=== PATIENT | male | born 1990 | race Two or more races ===

== ENCOUNTER 2024-10-06 02:29 | Inpatient (IN) | payer MEDICARE, SELFPAY ==
[2024-10-06] VITALS (33 sets, daily range): BP systolic 94–167; BP diastolic 59–108; PULSE 82–116; RESP 9–23; TEMP 36.8; O2SAT 93–100; BMI 47.3; BMI 49.6
--- NOTE | 2024-10-06 02:44 | XRR_ITS ---
PROCEDURE INFORMATION: Exam: XR Chest Exam date and time: 10/06/2024 3:18 AM Age: 34 years old Clinical indication: Screening exam; Other screening; Additional info: Overdose TECHNIQUE: Imaging protocol: Radiologic exam of the chest. Views: 1 view. COMPARISON: No relevant prior studies available. FINDINGS: Lungs: No CHF/pulmonary edema. Visible lungs appear essentially clear. Pleural spaces: No visible pneumothorax. No definite pleural fluid. Heart/Mediastinum: Heart size is within normal limits. Bones/joints: No significant acute finding. XR/XR chest 1V portable [id number] IMPRESSION: 1. Essentially unremarkable single view chest. 2. Other details discussed above.
--- NOTE | 2024-10-06 03:05 | ED.C_ITS ---
HPI - Psych 2 General: Chief Complaint: Psychiatric Symptoms Stated Complaint: OD pills Time Seen by Provider: 10/06/24 02:32 History of Present Illness: Patient presents to the ER with complaints of overdose. Patient took one and half bottles for approximately 45 pills of duloxetine last night around 2019. This was a direct attempt to end his life because he is tired of life. Patient does want to be placed in the psychiatric unit as an inpatient. He does have some nausea vomiting and fatigue since then but no other complaints. Related Data Allergies Allergy/AdvReac Type Severity Reaction Status Date / Time No Known Allergies Allergy Verified 10/06/24 02:35 Review of Systems 2 General: Reports: 10 or more systems reviewed and unremarkable except in HPI and below Physical Exam 2 Const: COMMON NORMALS: no acute distress, average body habitus, patient oriented x3, no limitations, healthy appearing, alert and well nourished HENMT: COMMON NORMALS: normocephalic, atraumatic, hearing grossly normal bilaterally, external ears normal, Normal external nose present and moist oral mucous membranes HEAD & SCALP: normocephalic and atraumatic NOSE: Normal external nose present EXTERNAL EAR: Yes external ears normal Eye: COMMON NORMALS: Equal, round and reactive pupils present, EOMs intact bilaterally, conjunctivae normal and no scleral icterus CONJUNCTIVA: Yes conjunctivae normal PUPIL: Yes Equal, round and reactive pupils present Neck/C-Spine: COMMON NORMALS: full ROM, no lymphadenopathy, supple, no meningeal signs, no JVD and Thyroid normal THYROID: Thyroid normal Chest: COMMONS NORMALS: normal inspection of the chest and normal palpation of entire chest wall Resp: COMMON NORMALS: normal respiratory effort, No retractions, No use of accessory muscles and clear to auscultation bilaterally AUSCULTATION: clear to auscultation bilaterally Cardio: COMMON NORMALS: no JVD, regular rate, regular rhythm, S1 normal heart sound present, S2 normal heart sound present, No gallops present (Cardio), No clicks present (Cardio), No murmurs present (Cardio) and No rub (Cardio) R ATE: regular rate RHYTHM: regular rhythm HEART SOUNDS: S1 normal heart sound present and S2 normal heart sound present GI: COMMON NORMALS: Normal to inspection, nondistended, normoactive bowel sounds present, Soft to palpation, non-tender, No hepatosplenomegaly present and no masses PALPATION: Yes Soft to palpation and Yes No hepatosplenomegaly present Neuro: COMMON NORMALS: patient oriented x3 SENSORIUM/ORIENTATION: Yes alert MENINGEAL SIGNS: Yes no meningeal signs Course 2 Vital Signs: Vital signs: Vital Signs Temperature 98.3 F 10/06/24 02:32 Pulse Rate 105 H 10/06/24 03:43 Respiratory Rate 13 10/06/24 03:43 Blood Pressure 125/90 10/06/24 03:43 Pulse Oximetry 97 10/06/24 03:43 Oxygen Delivery Me thod Room Air 10/06/24 03:43 MDM - Psych Medical Decision Making Lab work was obtained, in standard psychiatric fashion once cleared medically Dr. Becerra was consulted who agreed to place patient in ICU obs until stable and then transferred to MPU. Will place patient on 96-hour hold since this was a direct suicide attempt Medical Records I reviewed the patient's medical records. Lab Data I reviewed the patient's lab results. 10/06/24 03:14 10/06/24 03:14 Laboratory Results WBC 10.90 10^3/uL (3.29-11.43) 10/06/24 03:14 RBC 5.28 10^6/uL (3.85-5.65) 10/06/24 03:14 Hgb 14.60 g/dL (11.27-16.99) 10/06/24 03:14 Hct 44.0 % (37-53) 10/06/24 03:14 MCV 83.3 fl (82-101) 10/06/24 03:14 MCH 27.7 pg (27-33) 10/06/24 03:14 MCHC 33.2 g/dL (30-55) 10/06/24 03:14 RDW 11.8 % (12.1-15.1) L 10/06/24 03:14 Plt Count 351 10^3/cmm (157-399) 10/06/24 03:14 MPV 9.6 fL (7.4-10.4) 10/06/24 03:14 Neut % (Auto) 74.1 % 10/06/24 03:14 Lymph % (Auto) 17.8 % 10/06/24 03:14 [place] % (Auto) 4.7 % 10/06/24 03:14 Eos % (Auto) 1.7 % 10/06/24 03:14 Baso % (Auto) 1.1 % 10/06/24 03:14 Neut # (Auto) 8.08 10^3/uL (1.8-7.7) H 10/06/24 03:14 Lymph # (Auto) 1.9 10^3/uL (0.8-4.8) 10/06/24 03:14 [place] # (Auto) 0.5 10^3/uL (0.2-0.9) 10/06/24 03:14 Eos # (Auto) 0.2 10^3/uL (0.0-0.8) 10/06/24 03:14 Baso # (Auto) 0.1 10^3/uL (0.0-0.1) 10/06/24 03:14 Nucleated RBC % (auto) 0 % 10/06/24 03:14 Nucleated RBCs # 0.0 /100WBC 10/06/24 03:14 Sodium 140 mmol/L (136-145) 10/06/24 03:14 Potassium 4.3 mmol/L (3.5-5.1) 10/06/24 03:14 Chloride 101 mmol/L (98-107) 10/06/24 03:14 Carbon Dioxide 26 mmol/L (22-29) 10/06/24 03:14 Anion Gap 17.3 (5-19) 10/06/24 03:14 BUN 13 mg/dL (6-20) 10/06/24 03:14 Creatinine 1.0 mg/dL (0.7-1.2) 10/06/24 03:14 GFR Calculation 85.5 mL/min (90-130) L 10/06/24 03:14 Glucose 127 mg/dL (65-115) H 10/06/24 03:14 Calculated Osmolality 292 mOsm/kg (285-295) 10/06/24 03:14 Calcium 9.5 mg/dL (8.5-10.5) 10/06/24 03:14 Magnesium 2.1 mg/dL (1.7-2.3) 10/06/24 03:14 Total Bilirubin 0.3 mg/dL (0.15-1.2) 10/06/24 03:14 AST 39 U/L (0-40) 10/06/24 03:14 ALT 61 U/L (0-41) H 10/06/24 03:14 Alkaline Phosphatase 105 U/L (40-130) 10/06/24 03:14 Total Protein 7.9 g/dL (6.6-8.7) 10/06/24 03:14 Albumin 4.4 g/dL (3.5-5.2) 10/06/24 03:14 Globulin 3.5 g/dL (1.3-4.6) 10/06/24 03:14 Urine Color Yellow (Yellow) 10/06/24 03:47 Urine Appearance Clear (CLEAR) 10/06/24 03:47 Urine pH 6.5 (5-7) 10/06/24 03:47 Ur Specific Drake 1.022 (1.005-1.030) 10/06/24 03:47 Urine Protein Negative (Negative) 10/06/24 03:47 Urine Glucose (UA) Negative (Normal) 10/06/24 03:47 Urine Ketones Trace (Negative) 10/06/24 03:47 Urine Blood Negative (Negative) 10/06/24 03:47 Urine Nitrate Negative (Negative) 10/06/24 03:47 Urine Bilirubin Negative (Negative) 10/06/24 03:47 Urine Urobilinogen 1.0 mg/dL (Negative) 10/06/24 03:47 Ur Leukocyte Esterase Negative (Negative) 10/06/24 03:47 Urine RBC 0-2 /hpf (0-2) 10/06/24 03:47 Urine WBC 0-5 /hpf (0-5) 10/06/24 03:47 Ur Squamous Epith Cells 0-5 /hpf (0-5) 10/06/24 03:47 Amorphous Sediment Not Reportable 10/06/24 03:47 Urine Bacteria None seen /hpf (NONE) 10/06/24 03:47 Hyaline Casts 0-4 /lpf H 10/06/24 03:47 Salicylates < 0.3 mg/dL (3-10) L 10/06/24 03:14 Urine Opiates Screen Negative ng/mL (Negative) 10/06/24 03:47 Acetaminophen < 5.0 ug/mL (10-30) L 10/06/24 03:14 Ur Barbiturates Screen Negative ng/mL (Negative) 10/06/24 03:47 Ur Phencyclidine Scrn Negative ng/mL (Negative) 10/06/24 03:47 Ur Amphetamines Screen Negative ng/mL (Negative) 10/06/24 03:47 U Benzodiazepines Scrn Negative ng/mL (Negative) 10/06/24 03:47 Urine Cocaine Screen Negative ng/mL (Negative) 10/06/24 03:47 U Marijuana (THC) Screen Negative ng/mL (Negative) 10/06/24 03:47 Ethyl Alcohol < 10 mg/dL (0-10) 10/06/24 03:14 All radiology interpretation(s) finalized by discharge Discharge Plan Discharge Patient Disposition: Placed in Observation Clinical Impression: Overdose of antidepressant Qualifiers: Encounter type: initial encounter Injury intent: intentional self-harm Q ualified Code(s): T43.202A - Poisoning by unspecified antidepressants, intentional self-harm, initial encounter Coding Level of Care Code ED Geotechnician for Jenn Bacon
[2024-10-06 03:23] LABS: Basophils # 0.1 10^3/uL (0.0-0.1); Basophils % 1.1 %; Eosinophils # 0.2 10^3/uL (0.0-0.8); Eosinophils % 1.7 %; Lymphocytes # 1.9 10^3/uL (0.8-4.8); Lymphocytes % 17.8 %; Mean Corpuscular HGB Conc 33.2 g/dL (30-55); Mean Corpuscular Hemoglobin 27.7 pg (27-33); Mean Corpuscular Volume 83.3 fl (82-101); Mean Platelet Volume 9.6 fL (7.4-10.4); Monocytes # 0.5 10^3/uL (0.2-0.9); Monocytes % 4.7 %; Neutrophils # 8.08 10^3/uL (1.8-7.7); Neutrophils % 74.1 %; Nucleated Red Blood Cells % 0 %; Platelet Count 351 10^3/cmm (157-399); Red Blood Count 5.28 10^6/uL (3.85-5.65); Red Cell Distribution Width 11.8 % (12.1-15.1)
--- NOTE | 2024-10-06 03:24 | ECG_ITS ---
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: : 1990 Requested By: Noe Murcia Order Number: [id number] Reading MD: MARK GILL Measurements Intervals [place] Rate: 96 P: 32 [place]: 176 QRS: -21 QRSD: 104 T: 30 QT: 337 QTc: 427 Interpretive Statements SINUS RHYTHM BORDERLINE LEFT AXIS DEVIATION [QRS AXIS < -20] LOW QRS VOLTAGE IN PRECORDIAL LEADS [QRS DEFLECTION < 1.0 mV IN CHEST LEADS] INCOMPLETE RIGHT BUNDLE BRANCH BLOCK [90+ ms QRS DURATION, TERMINAL R IN V1/V2, 40+ ms S IN I/aVL/V4/V5/V6] No previous ECG available for comparison Electronically Signed On 10-06-2024 23:22:51 FIRST HELPER by MARK GILL [id number]
[2024-10-06 03:41] LABS: Acetaminophen < 5.0 ug/mL (10-30); Alanine Aminotransferase 61 U/L (0-41); Albumin Level 4.4 g/dL (3.5-5.2); Alcohol Level < 10 mg/dL (0-10); Alkaline Phosphatase 105 U/L (40-130); Anion Gap 17.3 (5-19); Aspartate Amino Transferase 39 U/L (0-40); Blood Urea Nitrogen 13 mg/dL (6-20); Calcium 9.5 mg/dL (8.5-10.5); Carbon Dioxide 26 mmol/L (22-29); Chloride 101 mmol/L (98-107); Creatinine Clr Calc Pharmacy 157.2274; Globulin 3.5 g/dL (1.3-4.6); Glomerular Filtration Rate 85.5 mL/min (90-130); Glucose 127 mg/dL (65-115); Magnesium 2.1 mg/dL (1.7-2.3); Osmolality Calculated 292 mOsm/kg (285-295); Potassium 4.3 mmol/L (3.5-5.1); Salicylate < 0.3 mg/dL (3-10); Sodium 140 mmol/L (136-145); Total Bilirubin 0.3 mg/dL (0.15-1.2); Total Protein 7.9 g/dL (6.6-8.7)
--- NOTE | 2024-10-06 03:44 | PC.NURSE ---
PT VERBALIZED THAT HE WAS HAVING SI SO HE TOOK 45 DULOXITINE AT 2030. NURSE CONTACTED POISON CONTROL. PT VS ARE STABLE AT THIS TIME AND PT IS ASYMPTOMATIC.
[2024-10-06 03:51] LABS: Bilirubin Urine Negative (Negative); Blood Urine Negative (Negative); Glucose Urine UA Negative (Normal); Ketones Urine Trace (Negative); Leukocyte Esterase Urine Negative (Negative); Nitrate Urine Negative (Negative); Protein Urine Negative (Negative); Specific Gravity, Urine 1.022 (1.005-1.030); Urine Appearance Clear (CLEAR); Urine Color Yellow (Yellow); pH Urine 6.5 (5-7)
[2024-10-06 03:56] LABS: Add Urine Microscopic? YES; Bacteria Urine None Seen /hpf; Hyaline Casts Urine 0-4 /lpf; RBC Urine 0-2 /hpf (0-2); Squamous Epithelial Cell Urine 0-5 /hpf (0-5); WBC Urine 0-5 /hpf (0-5)
[2024-10-06 03:58] LABS: Amphetamines Screen Urine Negative (Negative); Barbiturates Screen Urine Negative (Negative); Benzodiazepines Screen Urine Negative (Negative); Cocaine Screen Urine Negative (Negative); Opiate Screen Urine Negative (Negative); PCP Screen Urine Negative (Negative); THC Screen Urine Negative (Negative)
--- NOTE | 2024-10-06 04:14 | P.HP_ITS ---
Providers/Chief Complaint 2 Chief Complaint: OD pills History of Present Illness Tracey Valverde is a 34 year old male with asthma, depression, anxiety, obesity, and prior suicide attempt via overdose who presents to the emergency department with intentional drug overdose with intent for suicide. He reports he took about 45 duloxetine pills around 8:30 PM last night. He reports he did this in attempt to end his life. Endorses multiple life stressors currently. States this is his second attempt on his life. He endorses at least 6 prior psychiatric hospitalizations, mostly in [facility]. He reports his most recent hospitalization was about 5 to 6 months ago. He states he has not establish psychiatric care here in the area since moving here. Patient currently endorses nausea and upset stomach. He rates his abdominal discomfort about a 6 out of 10. Denies chest pain, palpitations, fevers, chills, or emesis. Review of Systems 2 Narrative: A complete review of systems was obtained and is negative except as stated in HPI. Medications/Allergies Allergies Allergy/AdvReac Type Severity Reaction Status Date / Time No Known Allergies Allergy Verified 10/06/24 02:35 PFSH Acute 2 PFSH: Medical History Morbid obesity Asthma Surgical History History of thumb surgery Family History Mother Depression Social History Smoking and tobacco/nicotine status: never used tobacco/nicotine Alcohol intake: never Substance/Drug Use: former Date of last use: Months ago Former substance use details: Marijuana Vitals/I&O/Wt Last Vital Signs Temp 98.3 F 10/06/24 02:32 Pulse 105 H 10/06/24 03:43 Resp 13 10/06/24 03:43 BP 125/90 10/06/24 03:43 Pulse Ox 97 10/06/24 03:43 O2 Del Method Room Air 10/06/24 03:43 10/05/24 10/05/24 10/06/24 14:59 22:59 06:59 Intake Total 0 / 0 Balance 0 / 0 Weight last 48 hrs Weight 154.04 kg Physical Exam 2 Narrative: General: Patient is awake and alert. Head: Normocephalic. Atraumatic. EOM intact. Neck: No JVD. Cardiovascular: RRR. No gallops. No murmurs. Lungs: Clear to auscultation, no use of accessory muscles, no crackles or wheezes. Skin: No jaundice. No rashes. Abdomen: Normal bowel sounds, abdomen soft and nontender. Genito Urinary: Genital exam not performed since complaints not related. Rectal: Rectal exam not performed since no symptoms indicated blood loss. Extremities: No cyanosis or clubbing. Musculoskeletal: No swollen or erythematous joints. Neurological: Moves all 4 extremities. No myoclonus. Psychiatric: Appropriate eye contact. Slightly flat affect. Data 10/06/24 03:14 10/06/24 03:14 A&P Assessment and plan (1) Overdose of antidepressant: Poison control contacted by ED, appreciate their mentations Continuous telemetry monitoring Monitor for EKG prolongation IV fluids ordered Qualifiers: Encounter type: initial encounter Injury intent: intentional self-harm Qualified Code(s): T43.A - Poisoning by unspecified antidepressants, intentional self-harm, initial encounter (2) Suicide attempt: ED provider reports 96-hour hold Suicide precautions Sitter Will need psychiatry consult in a.m. (3) Nausea: Likely related to drug intoxication Provide supportive care May consider antiemetic, will hold off for now given risk of compounding QTc prolongation (4) Asthma: Not in exacerbation Breathing treatment as needed (5) Morbid obesity: Would benefit from weight loss Plan DVT prophylaxis: Lovenox CODE STATUS: Full code Attestations 2 Medical Necessity Statement*: Patient presents with intentional drug overdose with expected hospitalization not to cross 2 midnights for IV fluids, telemetry, QTc monitoring, and psychiatric evaluation. Coding Level of Care Code Acute Code for Chg Fwd Diagnoses Overdose of antidepressant T43.202A Encounter type: initial encounter Injury intent: intentional self-harm Suicide attempt T14.91XA Nausea R11.0 Asthma J45.909 Morbid obesity E66.01
--- NOTE | 2024-10-06 04:34 | PC.NURSE ---
96 Hour Involuntary Hold Patient Rights have been reviewed with the patient and a copy of the same has been provided to him. Anesthesiology Physician Sabine was present at bedside during the time of presentation of Rights.
[2024-10-06] MEDS: calcium carbonate 500 mg Chew Tablet 1000 MG PO (05:33)
[2024-10-06] MEDS: enoxaparin 40 mg/0.4 mL Syringe SUBCUT (05:33)
[2024-10-06] MEDS: dextrose 5%-sod chloride 0.45% 1,000 ML 150 ML IV ×3 (05:42→19:55)
--- NOTE | 2024-10-06 06:15 | PC.NURSE ---
Nausea Patient complaining of nausea; Dr. Becerra contacted and order received for 4 mg zofran IVP once.
[2024-10-06] MEDS: ondansetron 2 mg/ML SDV 2 mL 4 MG IVP (06:22)
--- NOTE | 2024-10-06 09:24 | ECG_ITS ---
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1990 Requested By: Mazin Banegas Order Number: [id number] Reading MD: MARK GILL Measurements Intervals [place] Rate: 94 P: 33 [place]: 183 QRS: -20 QRSD: 117 T: 31 QT: 359 QTc: 450 Interpretive Statements SINUS RHYTHM LOW QRS VOLTAGE IN PRECORDIAL LEADS [QRS DEFLECTION < 1.0 mV IN CHEST LEADS] MODERATE INTRAVENTRICULAR CONDUCTION DELAY [110+ ms QRS DURATION] Compared to ECG 10/06/2024 03:24:01 Intraventricular conduction delay now present Incomplete right bundle-branch block no longer present Electronically Signed On 10-06-2024 23:32:40 DICE TABLE PERSON by MARK GILL [id number]
--- NOTE | 2024-10-06 14:08 | PC.NURSE ---
Poison control recommended repeat 12 lead at 1500 to monitor qrs
--- NOTE | 2024-10-06 15:34 | P.PN_ITS ---
Subjective 2 Subjective: Patient seen at his bedside this morning. He reports some dizziness. Nausea is improved. He has no other complaints. Vitals/I&O/Wt Last Vital Signs Temp 98.2 F 10/06/24 05:06 Pulse 87 10/06/24 12:00 Resp 21 H 10/06/24 12:00 BP 110/72 10/06/24 14:00 Pulse Ox 97 10/06/24 14:00 O2 Del Method Room Air 10/06/24 05:50 10/06/24 10/06/24 10/06/24 06:59 14:59 22:59 Intake Total 0 / 0 1200 / 1200 Balance 0 / 0 1200 / 1200 Weight last 48 hrs Weight 152.5 kg Weight 152.5 kg Weight 154.04 kg Physical Exam 2 Const: COMMON NORMALS: no acute distress, patient oriented x3 and alert HENMT: COMMON NORMALS: normocephalic, atraumatic, external ears normal, Normal external nose present, moist oral mucous membranes and oropharynx normal HEAD & SCALP: normocephalic and atraumatic NOSE: Normal external nose present E XTERNAL EAR: Yes external ears normal Eye: COMMON NORMALS: Equal, round and reactive pupils present, EOMs intact bilaterally, conjunctivae normal and no scleral icterus CONJUNCTIVA: Yes conjunctivae normal PUPIL: Yes Equal, round and reactive pupils present Neck/C-Spine: COMMON NORMALS: full ROM, no lymphadenopathy and no JVD Chest: COMMONS NORMALS: normal inspection of the chest Resp: COMMON NORMALS: normal respiratory effort and clear to auscultation bilaterally AUSCULTATION: clear to auscultation bilaterally OTHER: No wheezes or crcakles Cardio: COMMON NORMALS: no JVD, regular rate, regular rhythm, S1 normal heart sound present and S2 normal heart sound present RATE: regular rate RHYTHM: regular rhythm HEART SOUNDS: S1 normal heart sound present and S2 normal heart sound present GI: COMMON NORMALS: Normal to inspection, nondistended, normoactive bowel sounds present, Soft to palpation and non-tender PALPATION: Yes Soft to palpation Extremity: COMMON NORMALS: normal to inspection and no pedal edema Neuro: COMMON NORMALS: patient oriented x3 SENSORIUM/ORIENTATION: Yes alert OTHER: No gross focal deficits Data 10/06/24 03:14 10/06/24 03:14 A&P Assessment and plan (1) Overdose of antidepressant: - Patient reports he took about 45 duloxetine pills. -Nausea is improved, patient reports some dizziness. His blood pressure is stable. -EKG showing prolonged QRS -Poison control contacted, patient will need bicarb infusion if QRS becomes greater than 120 - Serial EKGs, continue telemetry monitoring. -Keep K above 4 and mag above 2 -Continue supportive care Qualifiers: Encounter type: initial encounter Injury intent: intentional self-harm Qualified Code(s): T43.A - Poisoning by unspecified antidepressants, intentional self-harm, initial encounter (2) Suicide attempt: - Patient is on a 96 hr hold ED provider reports 96-hour hold -Suicide precautions -1:1Sitter -Consult's psychiatry (3) Nausea: - In the setting of rug overdose and is improved -Supportive care (4) Asthma: Not in exacerbation Breathing treatment as needed (5) Morbid obesity: Would benefit from weight loss Plan DVT prophylaxis: Lovenox CODE STATUS: Full code Attestations 2 Medical Necessity Statement*: Patient continues to require inpatient care for management of intentional drug overdose. Coding Level of Care Code Acute Code for Chg Fwd Diagnoses Overdose of antidepressant T43.A Encounter type: initial encounter Injury intent: intentional self-harm Suicide attempt T14.91XA Nausea R11.0 Asthma J45.909 Morbid obesity E66.01
[2024-10-06 16:44] LABS: Anion Gap 16.4 (5-19); Blood Urea Nitrogen 10 mg/dL (6-20); Calcium 9.3 mg/dL (8.5-10.5); Carbon Dioxide 26 mmol/L (22-29); Chloride 100 mmol/L (98-107); Creatinine Clr Calc Pharmacy 169.1747; Glomerular Filtration Rate 96.6 mL/min (90-130); Glucose 97 mg/dL (65-115); Potassium 4.4 mmol/L (3.5-5.1); Sodium 138 mmol/L (136-145)
--- NOTE | 2024-10-06 16:44 | ECG_ITS ---
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 Internship: : 1990 Requested By: Mazin Banegas Order Number: [id number] Reading MD: MARK GILL Measurements Intervals [place] Rate: 93 P: 51 [place]: 180 QRS: 11 QRSD: 116 T: 54 QT: 359 QTc: 448 Interpretive Statements SINUS RHYTHM INCOMPLETE RIGHT BUNDLE BRANCH BLOCK [90+ ms QRS DURATION, TERMINAL R IN V1/V2, 40+ ms S IN I/aVL/V4/V5/V6] Compared to ECG 10/06/2024 09:24:49 Incomplete right bundle-branch block now present Intraventricular conduction delay no longer present Electronically Signed On 10-06-2024 23:31:40 FLUORESCENT LIGHTING MODEL MAKER by MARK GILL [id number]
--- NOTE | 2024-10-06 19:59 | PC.NURSE ---
Patient is in pleasant mood and denies any complaints of nausea, pain, or any chest discomfort. Patient watching jade potter and in good spirits.
[2024-10-07] VITALS (16 sets, daily range): BP systolic 121–157; BP diastolic 70–104; PULSE 76–111; RESP 14–28; TEMP 36.6–36.7; O2SAT 96–100; BMI 50.6
[2024-10-07] MEDS: dextrose 5%-sod chloride 0.45% 1,000 ML 150 ML IV ×2 (03:08→10:09)
[2024-10-07] MEDS: enoxaparin 40 mg/0.4 mL Syringe SUBCUT (04:41)
[2024-10-07 05:26] LABS: Alanine Aminotransferase 49 U/L (0-41); Albumin Level 3.9 g/dL (3.5-5.2); Alkaline Phosphatase 95 U/L (40-130); Anion Gap 14.3 (5-19); Aspartate Amino Transferase 28 U/L (0-40); Blood Urea Nitrogen 8 mg/dL (6-20); Calcium 9.3 mg/dL (8.5-10.5); Carbon Dioxide 25 mmol/L (22-29); Chloride 103 mmol/L (98-107); Creatinine Clr Calc Pharmacy 190.3215; Globulin 3.1 g/dL (1.3-4.6); Glomerular Filtration Rate 110.7 mL/min (90-130); Glucose 114 mg/dL (65-115); Osmolality Calculated 285 mOsm/kg (285-295); Potassium 4.3 mmol/L (3.5-5.1); Sodium 138 mmol/L (136-145); Total Bilirubin 0.2 mg/dL (0.15-1.2)
--- NOTE | 2024-10-07 08:19 | ECG_ITS ---
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
--- NOTE | 2024-10-07 11:17 | P.PN_ITS ---
Subjective 2 Subjective: No acute events overnight. Patient seen at his bedside and denies any new complaints today. Patient has a one-to-one sitter Vitals/I&O/Wt Last Vital Signs Temp 98.3 F 10/06/24 20:00 Pulse 90 10/07/24 10:00 Resp 28 H 10/07/24 10:00 BP 123/80 10/07/24 10:00 Pulse Ox 96 10/07/24 10:00 O2 Del Method Room Air 10/06/24 05:50 10/06/24 10/07/24 10/07/24 22:59 06:59 14:59 Intake Total 1240 / 2440 1000 / 3440 1240 / 1240 Output Total 600 / 600 Balance 1240 / 2440 400 / 2840 1240 / 1240 Weight last 48 hrs Weight 155.5 kg Weight 152.5 kg Weight 152.5 kg Weight 154.04 kg Physical Exam 2 Const: COMMON NORMALS: no acute distress, patient oriented x3 and alert HENMT: COMMON NORMALS: normocephalic, atraumatic, external ears normal, Normal external nose present, moist oral mucous membranes and oropharynx normal HEAD & SCALP: normocephalic and atraumatic NOSE: Normal external nose present E XTERNAL EAR: Yes external ears normal Eye: COMMON NORMALS: Equal, round and reactive pupils present, EOMs intact bilaterally, conjunctivae normal and no scleral icterus CONJUNCTIVA: Yes conjunctivae normal PUPIL: Yes Equal, round and reactive pupils present Neck/C-Spine: COMMON NORMALS: full ROM, no lymphadenopathy and no JVD Chest: COMMONS NORMALS: normal inspection of the chest Resp: COMMON NORMALS: normal respiratory effort and clear to auscultation bilaterally AUSCULTATION: clear to auscultation bilaterally OTHER: No wheezes or crcakles Cardio: COMMON NORMALS: no JVD, regular rate, regular rhythm, S1 normal heart sound present and S2 normal heart sound present RATE: regular rate RHYTHM: regular rhythm HEART SOUNDS: S1 normal heart sound present and S2 normal heart sound present GI: COMMON NORMALS: Normal to inspection, nondistended, normoactive bowel sounds present, Soft to palpation and non-tender PALPATION: Yes Soft to palpation Extremity: COMMON NORMALS: normal to inspection and no pedal edema Neuro: COMMON NORMALS: patient oriented x3 SENSORIUM/ORIENTATION: Yes alert OTHER: No gross focal deficits Data 10/06/24 03:14 10/07/24 04:35 A&P Assessment and plan (1) Overdose of antidepressant: -Patient reports he took about 45 duloxetine pills. -Nausea is improved, he is tolerating p.o. intake 10 p.o. intake reports some dizziness. His blood pressure is stable. -EKG today showed improved QRS. Patient discharged from poison control Qualifiers: Encounter type: initial encounter Injury intent: intentional self-harm Qualified Code(s): T43.A - Poisoning by unspecified antidepressants, intentional self-harm, initial encounter (2) Suicide attempt: - Patient is on a 96 hr hold -Suicide precautions -1:1Sitter -Consult's psychiatry -Patient is medically cleared today to be transferred to psychiatry. (3) Nausea: - In the setting of rug overdose and is improved -Supportive care (4) Asthma: Not in exacerbation Breathing treatment as needed (5) Morbid obesity: Would benefit from weight loss Plan Patient is medically cleared to be transferred to inpatient psychiatry Attestations 2 Medical Necessity Statement*: Patient to be transferred to psychiatry for continued inpatient psychiatric care for suicidal attempt Coding Level of Care Code Acute Code for Chg Fwd Diagnoses Overdose of antidepressant T43.202A Encounter type: initial encounter Injury intent: intentional self-harm Suicide attempt T14.91XA Nausea R11.0 Asthma J45.909 Morbid obesity E66.01
--- NOTE | 2024-10-07 13:45 | PC.NURSE ---
Transfer Note Patient transferred to NPU from ICU via wheelchair. Handoff report given to DONNA Carson. Patient oriented to environment and equipment. Covering service notified. Orders reviewed and will continue to monitor. All patient belongings transferred with patient to NPU & placed at nurses station. Patient alert/pleasant for transfer, all questions answered at this time.
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
--- NOTE | 2024-10-07 14:48 | PC.ADMIT ---
46 [facility] Admission Note: The patient,Traecy Valverde,34 y/o, was given written information regarding hospital policies, unit procedures and contact persons. Patient's smoking status: never smoked. Vital Signs - 8 hr 10/07/24 07:00 10/07/24 08:00 10/07/24 09:00 Pulse Rate 79 89 90 Respiratory Rate 21 H 15 17 Blood Pressure 130/90 133/84 140/95 Pulse Oximetry 96 99 99 Oxygen Delivery Method 10/07/24 10:00 10/07/24 11:00 10/07/24 12:00 Pulse Rate 90 96 93 Respiratory Rate 28 H 20 H 21 H Blood Pressure 123/80 157/100 121/70 Pulse Oximetry 96 96 97 Oxygen Delivery Method 10/07/24 13:57 Pulse Rate Respiratory Rate Blood Pressure Pulse Oximetry Oxygen Delivery Method Room Air TRANSFERRED FROM ICU BED 6 AT 1355 VIA WHEELCHAIR, SECURITY AND ICU STAFF ON AN INVOLUNTARY 96 HOUR HOLD DUE TO INTENTIONALLY OVERDOSING ON MY MEDICATION SO I COULD , I DON'T HAVE A PLACE TO LIVE. REPORTS THAT THIS IS HIS 2ND OVERDOSE DUE TO NOT HAVING ANY HOUSING AND BEING HOMELESS. PT STATES HE IS NOT FROM HERE BUT HAS BEEN ADMITTED TO SEVERAL PSYCHIATRIC FACILITIES. DENIES SI/HI AND AVH AT THIS TIME BUT STATES WHEN I LEAVE HERE IN 7DAYS I WILL BE SUICIDAL AGAIN IF I DON'T HAVE A PLACE TO STAY, RATES ANXIETY 6/10 AND DEPRESSION 4/10. PT IS NOTED TO HAVE LITTLE TO NO EYE CONTACT WITH RN AND POOR HYGIENE IS OBSERVED. PT WAS GIVEN HIS HYGIENE BOX TO SHOWER WITH CLEAN SCRUBS. PT REPORTS HE WAS TAKING DULOXIETINE 200 MG AT NIGHT WHICH IS WHAT HE OVERDOSED ON, WELL LATUDA 120 MG, WHICH PT STATES HE STOPPED DUE TO IT MAKING ME SICK ALL THE TIME. PT REPORTS THIS IS HIS SECOND OVERDOSE AND THE THE LAST OVERDOSE HAD TO DO WITH NOT HAVING HOUSING WELL. PT ORIENTATED TO THE UNIT. SKIN ASSESSMENT UNREMARKABLE. VITALS STABLE. DR. YU AWARE OF PT ADMISSION AND WILL SEE SHORTLY. ALL QUESTIONS WERE ANSWERED AND SUPPORT WAS VOICED.
[2024-10-07] MEDS: quetiapine XR (24HR) 50 mg Tablet PO (20:49)
[2024-10-08 06:00] VITALS: BP 135/83; PULSE 98; RESP 16; TEMP 36.4; O2SAT 97; BMI 46.4
--- NOTE | 2024-10-08 12:49 | P.NPUPN_ITS ---
Subjective NPU 2 Subjective: 34-year-old male with bipolar depression admitted after overdosing on Cymbalta. The patient had reported feeling tired. He continued to report depressed mood. He had expressed concern about being homeless. He had continued complaints about abandonment. He had continued to endorse some hopelessness. Patient had remained somewhat isolative on the milieu. He continued to report stress at being here in the hospital. Mental Status Exam 2 MSE Comments: Patient is a casually dressed white male with poor hygiene and fleeting eye contact. He was overweight. His gait appeared within normal limits. There was evidence of significant psychomotor retardation. There was no evidence of other abnormal involuntary motor movements, tics, or tremors appreciated. His speech was monotone in quality but productive with normal volume. His mood was described as depressed. His affect was restricted in range and mood congruent. He acknowledged having suicidal thoughts and acknowledged having overdosed on his Cymbalta. He denied any homicidal ideation. He did not appear to be responding to internal stimuli. There was no clear evidence of delusional thinking. His attention span appeared poor. His recent and remote memory appeared grossly intact. He was alert and oriented to person, place, time and situation. His insight is poor. His judgment is poor. His impulse control appeared limited. Significant themes of hopelessness and chronic feelings of loneliness were appreciated on examination. His fund of knowledge appeared poor. Vitals/I&O/Wt Last Vital Signs Temp 97.6 F 10/08/24 06:00 Pulse 98 10/08/24 06:00 Resp 16 10/08/24 06:00 BP 135/83 10/08/24 06:00 Pulse Ox 97 10/08/24 06:00 O2 Del Method Room Air 10/08/24 06:00 10/07/24 10/08/24 10/08/24 22:59 06:59 14:59 Intake Total 480 / 2200 Output Total 600 / 600 Balance -120 / 1600 Weight last 48 hrs Weight 142.57 kg Weight 155.5 kg Weight 155.5 kg Data NPU 10/06/24 03:14 10/07/24 04:35 A&P Assessment and plan (1) Bipolar disorder with severe depression: (2) Suicide attempt: Plan 34-year-old male with complaints of depression admitted with overdose on 45 pills of Cymbalta but reporting history of prior manic symptoms as well. He would likely benefit from medications targeting bipolar depression first. Patient's recent stressors including the potential of homelessness and potential abandonment is he has few social supports and his cousin has expressed desire to leave the patient with another caregiver. #1.? Engage patient in individual milieu and group therapy. #2?? Recommend sober living treatment at the highest level of care to which the patient is willing to commit #3??? Increase Seroquel xr 100mg at night for bipolar depression. #4?? TO-15 minute checks? #5?? Will attempt to gather collateral information Involuntary Hold Information 2 96 Hour Hold: 96 Hour Involuntary Admission: Yes 96 Hour Hold Ending Date: 10/13/24 96 Hour Hold Ending Time: 04:11 Other Hold: Hold End Date: 10/15/24 Attestations NPU 2 Medical Necessity Statement*: Inpatient hospitalization is medically necessary and deemed to ?be ?the clinically appropriate intervention ?at this time.? We will monitor/initiate medications and make changes as indicated.? The patient?s likely length of stay is 5-7 days. Coding Level of Care Code Acute Code for Chg Fwd Diagnoses Bipolar disorder with severe depression F31.4 Suicide attempt T14.91XA
[2024-10-08 14:00] VITALS: BP 120/72; PULSE 104; RESP 18; TEMP 36.8; O2SAT 99
[2024-10-08] MEDS: quetiapine XR (24HR) 50 mg Tablet 100 MG PO (20:20)
[2024-10-08 22:00] VITALS: BP 139/89; PULSE 105; RESP 16; TEMP 36.8; O2SAT 96
[2024-10-09 06:00] VITALS: BP 125/85; PULSE 90; RESP 16; TEMP 36.9; O2SAT 100
[2024-10-09 14:00] VITALS: BP 100/68; PULSE 87; RESP 16; TEMP 36.4; O2SAT 96
--- NOTE | 2024-10-09 18:27 | P.NPUPN_ITS ---
Subjective NPU 2 Subjective: 34-year-old male with bipolar depression admitted after overdosing on Cymbalta. Patient had continued to report having some suicidal thoughts. He had reported worries about being abandoned and being homeless. He reported no side effects from his current medication regimen. He reported adequate sleep. The patient had appeared to spend much of the biogeographer in bed and struggled with completion of tasks of daily living including brushing and showering. He had reported that he had been living independently with supports in the past. He reported having limited family at this time. He stated being agreeable with remaining in the area and states that he would be okay with residing in a detention once he felt better. Mental Status Exam 2 MSE Comments: Patient is a casually dressed white male with poor hygiene and fleeting eye contact. He was overweight. His gait appeared within normal limits. There was evidence of significant psychomotor retardation. There was no evidence of other abnormal involuntary motor movements, tics, or tremors appreciated. His speech was monotone in quality but productive with normal volume. His mood was described as down. His affect was restricted in range and mood congruent. He acknowledged having suicidal thoughts and acknowledged having overdosed on his Cymbalta. He denied any homicidal ideation. He did not appear to be responding to internal stimuli. There was no clear evidence of delusional thinking. His attention span appeared poor. His recent and remote memory appeared grossly intact. He was alert and oriented to person, place, time and situation. His insight is poor. His judgment is poor. His impulse control appeared limited. Significant themes of abandonment were appreciated on examination. His fund of knowledge appeared poor. Vitals/I&O/Wt Last Vital Signs Temp 97.6 F 10/09/24 14:00 Pulse 87 10/09/24 14:00 Resp 16 10/09/24 14:00 BP 100/68 10/09/24 14:00 Pulse Ox 96 10/09/24 14:00 O2 Del Method Room Air 10/09/24 06:00 10/09/24 10/09/24 10/09/24 06:59 14:59 22:59 Intake Total 960 / 960 Output Total 1200 / 1200 Balance -240 / -240 Weight last 48 hrs Weight 142.57 kg Data NPU 10/06/24 03:14 10/07/24 04:35 A&P Assessment and plan (1) Bipolar disorder with severe depression: (2) Suicide attempt: Plan 34-year-old male with complaints of depression admitted with overdose on 45 pills of Cymbalta but reporting history of prior manic symptoms as well. He would likely benefit from medications targeting bipolar depression first. Patient's recent stressors including the potential of homelessness and potential abandonment is he has few social supports and his cousin has expressed desire to leave the patient with another caregiver. #1.? Engage patient in individual milieu and group therapy. #2?? Recommend sober living treatment at the highest level of care to which the patient is willing to commit #3??? Continue Seroquel xr 100mg at night for bipolar depression with increase in 1-2 days. #4?? TO-15 minute checks? #5?? Will attempt to gather collateral information Involuntary Hold Information 2 96 Hour Hold: 96 Hour Involuntary Admission: Yes 96 Hour Hold Ending Date: 10/13/24 96 Hour Hold Ending Time: 04:11 Other Hold: Hold End Date: 10/15/24 Attestations NPU 2 Medical Necessity Statement*: Inpatient hospitalization is medically necessary and deemed to ?be ?the clinically appropriate intervention ?at this time.? We will monitor/initiate medications and make changes as indicated.? The patient?s likely length of stay is 5-7 days. Coding Level of Care Code Acute Code for Chg Fwd Diagnoses Bipolar disorder with severe depression F31.4 Suicide attempt T14.91XA
[2024-10-09 19:40] VITALS: BP 139/90; PULSE 98; RESP 18; TEMP 36.9; O2SAT 100
[2024-10-09] MEDS: ibuprofen 600 mg Tablet PO (20:19)
[2024-10-09] MEDS: quetiapine XR (24HR) 50 mg Tablet 100 MG PO (20:19)
[2024-10-10 06:00] VITALS: BP 127/91; PULSE 89; RESP 16; TEMP 36.9; O2SAT 98
[2024-10-10 14:00] VITALS: BP 133/87; PULSE 95; RESP 17; TEMP 36.3; O2SAT 99
--- NOTE | 2024-10-10 16:09 | P.NPUPN_ITS ---
Subjective NPU 2 Subjective: 34-year-old male with bipolar depression admitted after overdosing on Cymbalta. Patient had continued to report having some suicidal thoughts. He had reported worries about being abandoned and being homeless. Patient continued to endorse suicidal thoughts. He had continued to struggle with completion of activities of daily living including basic brushing of teeth and showering. He had continued to endorse depression. He had reported feeling tired after taking the Seroquel extended release. He had reported some difficulties with falling asleep. He had attended groups with some prodding but had limited engagement in therapy. Mental Status Exam 2 MSE Comments: Patient is a casually dressed white male with poor hygiene and fleeting eye contact. He was overweight. His gait appeared within normal limits. There was evidence of significant psychomotor retardation. There was no evidence of other abnormal involuntary motor movements, tics, or tremors appreciated. His speech was monotone in quality but productive with normal volume. His mood was described as depressed. His affect was restricted in range and mood congruent. He acknowledged having suicidal thoughts and acknowledged having overdosed on his Cymbalta. He denied any homicidal ideation. He did not appear to be responding to internal stimuli. There was no clear evidence of delusional thinking. His attention span appeared poor. His recent and remote memory appeared grossly intact. He was alert and oriented to person, place, time and situation. His insight is poor. His judgment is poor. His impulse control appeared limited. Significant themes of abandonment were appreciated on examination. His fund of knowledge appeared poor. Vitals/I&O/Wt Last Vital Signs Temp 97.4 F L 10/10/24 14:00 Pulse 95 10/10/24 14:00 Resp 17 10/10/24 14:00 BP 133/87 10/10/24 14:00 Pulse Ox 99 10/10/24 14:00 O2 Del Method Room Air 10/10/24 06:00 Data NPU 10/06/24 03:14 10/07/24 04:35 A&P Assessment and plan (1) Bipolar disorder with severe depression: (2) Suicide attempt: Plan 34-year-old male with complaints of depression admitted with overdose on 45 pills of Cymbalta but reporting history of prior manic symptoms as well. He would likely benefit from medications targeting bipolar depression first. Patient's recent stressors including the potential of homelessness and potential abandonment is he has few social supports and his cousin has expressed desire to leave the patient with another caregiver. #1.? Engage patient in individual milieu and group therapy. #2?? Recommend sober living treatment at the highest level of care to which the patient is willing to commit #3??? Switch to Seroquel IR vs XR tonight. #4?? TO-15 minute checks? #5?? Will attempt to gather collateral information Involuntary Hold Information 2 96 Hour Hold: 96 Hour Involuntary Admission: Yes 96 Hour Hold Ending Date: 10/13/24 96 Hour Hold Ending Time: 04:11 Other Hold: Hold End Date: 10/15/24 Attestations NPU 2 Medical Necessity Statement*: Inpatient hospitalization is medically necessary and deemed to ?be ?the clinically appropriate intervention ?at this time.? We will monitor/initiate medications and make changes as indicated.? The patient?s likely length of stay is 5-7 days. Coding Level of Care Code Acute Code for g Fwd Diagnoses Bipolar disorder with severe depression F31.4 Suicide attempt T14.91XA
[2024-10-10 20:04] VITALS: BP 131/83; PULSE 90; RESP 18; TEMP 37.4; O2SAT 98
[2024-10-10] MEDS: quetiapine 100 mg Tablet PO (20:54)
[2024-10-11] MEDS: hyDROXYzine 25 mg Capsule 50 MG PO ×2 (01:10→21:09)
[2024-10-11] MEDS: trazodone 50 mg Tablet PO ×2 (01:10→21:10)
[2024-10-11 06:00] VITALS: BP 129/74; PULSE 96; RESP 18; TEMP 36.6; O2SAT 98
--- NOTE | 2024-10-11 12:52 | P.NPUPN_ITS ---
Subjective NPU 2 Subjective: 34-year-old male with bipolar depression and mild cognitive impairment admitted after overdosing on Cymbalta. Patient had remained hopeful about having enough money to live in a [facility] as he had been on SSI. He had stated that he had limited social supports in his previous residence. He states that he would like to stay in [place] and continue with outpatient therapy. He had reported that he was no longer having as intense suicidal thoughts. He had remained compliant to his medication regimen. He had continued to worry about being abandoned and continued to perseverate about what would happen to them if he were to be homeless. Mental Status Exam 2 MSE Comments: Patient is a casually dressed white male with poor hygiene and fleeting eye contact. He was overweight. His gait appeared within normal limits. There was evidence of significant psychomotor retardation. There was no evidence of other abnormal involuntary motor movements, tics, or tremors appreciated. His speech was monotone in quality but productive with normal volume. His mood was described as depressed. His affect was restricted in range and mood congruent. He acknowledged having suicidal thoughts and acknowledged having overdosed on his Cymbalta. He denied any homicidal ideation. He did not appear to be responding to internal stimuli. There was no clear evidence of delusional thinking. His attention span appeared poor. His recent and remote memory appeared grossly intact. He was alert and oriented to person, place, time and situation. His insight is poor. His judgment is poor. His impulse control appeared limited. Significant themes of abandonment were appreciated on examination. His fund of knowledge appeared poor. Vitals/I&O/Wt Last Vital Signs Temp 97.8 F 10/11/24 06:00 Pulse 96 10/11/24 06:00 Resp 18 10/11/24 06:00 BP 129/74 10/11/24 06:00 Pulse Ox 98 10/11/24 06:00 O2 Del Method Room Air 10/11/24 06:00 10/10/24 10/11/24 10/11/24 22:59 06:59 14:59 Intake Total 480 / 480 Output Total 600 / 600 Balance -120 / -120 Data NPU 10/06/24 03:14 10/07/24 04:35 A&P Assessment and plan (1) Bipolar disorder with severe depression: (2) Suicide attempt: Plan 34-year-old male with complaints of depression admitted with overdose on 45 pills of Cymbalta but reporting history of prior manic symptoms as well. He would likely benefit from medications targeting bipolar depression first. Patient's recent stressors including the potential of homelessness and potential abandonment is he has few social supports and his cousin has expressed desire to leave the patient with another caregiver. #1.? Engage patient in individual milieu and group therapy. #2?? Recommend sober living treatment at the highest level of care to which the patient is willing to commit #3??? Increase seroquel to 150mg at night. #4?? TO-15 minute checks? #5?? Will attempt to gather collateral information Involuntary Hold Information 2 96 Hour Hold: 96 Hour Involuntary Admission: Yes 96 Hour Hold Ending Date: 10/13/24 96 Hour Hold Ending Time: 04:11 Other Hold: Hold End Date: 10/15/24 Attestations NPU 2 Medical Necessity Statement*: Inpatient hospitalization is medically necessary and deemed to ?be ?the clinically appropriate intervention ?at this time.? We will monitor/initiate medications and make changes as indicated.? The patient?s likely length of stay is 5-7 days. Coding Level of Care Code Acute Code for Chg Fwd Diagnoses Bipolar disorder with severe depression F31.4 Suicide attempt T14.91XA
[2024-10-11 14:00] VITALS: BP 114/75; PULSE 81; RESP 17; TEMP 36.7; O2SAT 99
[2024-10-11 17:05] VITALS: PULSE 104; RESP 16; O2SAT 98
[2024-10-11] MEDS: albuterol 2.5 mg/3 mL Neb INHALATION (17:07)
[2024-10-11] MEDS: quetiapine 100 mg Tablet 150 MG PO (21:10)
[2024-10-11 21:57] VITALS: BP 117/73; PULSE 106; RESP 18; TEMP 36.8; O2SAT 99
[2024-10-12 06:00] VITALS: BP 116/78; PULSE 99; RESP 18; TEMP 36.3; O2SAT 98
--- NOTE | 2024-10-12 13:59 | DCPLANNER ---
IIMM completed on 10/12/2024 @ 5006 and pt was given a copy of rights.
[2024-10-12 14:00] VITALS: BP 131/85; PULSE 93; RESP 18; TEMP 36.9; O2SAT 98
--- NOTE | 2024-10-12 14:32 | P.NPUPN_ITS ---
Subjective NPU 2 Subjective: 34-year-old male with bipolar depression and mild cognitive impairment admitted after overdosing on Cymbalta. Shady continue to express low motivation but stated that he was feeling less depressed. He had reported struggles with managing his own affairs. He had reported some improved sleep. He reported no side effects from his medication regimen. He reported feeling less sad. He had reported struggling with loneliness and reported having very limited social supports. Mental Status Exam 2 MSE Comments: Patient is a casually dressed white male with poor hygiene and fleeting eye contact. He was overweight. His gait appeared within normal limits. There was evidence of significant psychomotor retardation. There was no evidence of other abnormal involuntary motor movements, tics, or tremors appreciated. His speech was monotone in quality but productive with normal volume. His mood was described as okay. His affect was restricted in range and mood congruent. He denied suicidal thoughts today. He denied any homicidal ideation. He did not appear to be responding to internal stimuli. There was no clear evidence of delusional thinking. His attention span appeared poor. His recent and remote memory appeared grossly intact. He was alert and oriented to person, place, time and situation. His insight is poor. His judgment is poor. His impulse control appeared limited. Significant themes of abandonment were appreciated on examination. His fund of knowledge appeared poor. Vitals/I&O/Wt Last Vital Signs Temp 97.4 F L 10/12/24 06:00 Pulse 99 10/12/24 06:00 Resp 18 10/12/24 06:00 BP 116/78 10/12/24 06:00 Pulse Ox 98 10/12/24 06:00 O2 Del Method Room Air 10/12/24 06:00 Data NPU 10/06/24 03:14 10/07/24 04:35 A&P Assessment and plan (1) Bipolar disorder with severe depression: (2) Suicide attempt: Plan 34-year-old male with complaints of depression admitted with overdose on 45 pills of Cymbalta but reporting history of prior manic symptoms as well. He would likely benefit from medications targeting bipolar depression first. Patient's recent stressors including the potential of homelessness and potential abandonment is he has few social supports and his cousin has expressed desire to leave the patient with another caregiver. #1.? Engage patient in individual milieu and group therapy. #2?? Recommend sober living treatment at the highest level of care to which the patient is willing to commit #3???Continue seroquel at 150mg at night. #4?? TO-15 minute checks? #5?? Will attempt to gather collateral information Involuntary Hold Information 2 96 Hour Hold: 96 Hour Involuntary Admission: Yes 96 Hour Hold Ending Date: 10/13/24 96 Hour Hold Ending Time: 04:11 Other Hold: Hold End Date: 10/15/24 Attestations NPU 2 Medical Necessity Statement*: Inpatient hospitalization is medically necessary and deemed to ?be ?the clinically appropriate intervention ?at this time.? We will monitor/initiate medications and make changes as indicated.? The patient?s likely length of stay is 2-3 days. Coding Level of Care Code Acute Code for Chg Fwd Diagnoses Bipolar disorder with severe depression F31.4 Suicide attempt T14.91XA
[2024-10-12 20:07] VITALS: BP 127/87; PULSE 98; RESP 20; TEMP 37.1; O2SAT 100
[2024-10-12] MEDS: quetiapine 100 mg Tablet 150 MG PO (20:11)
[2024-10-12] MEDS: trazodone 50 mg Tablet PO (20:11)
[2024-10-12] MEDS: hyDROXYzine 25 mg Capsule 50 MG PO (20:12)
[2024-10-13 06:00] VITALS: BP 134/82; PULSE 93; RESP 18; TEMP 36.4; O2SAT 99
[2024-10-13 07:44] VITALS: BP 134/82; PULSE 93; RESP 18; TEMP 36.4; O2SAT 99
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
== END 2024-10-13 07:57 | disposition home or self-care (01) | DRG 918 ==
LOC: ER 04:13 → ICU 04:39 → NP 10-07 14:11
PROVIDERS: Student in an Organized Health Care Education/Training Program; Admitting Provider Internal Medicine; Emergency Provider Emergency Medicine; Visit Provider Psychiatry & Neurology Psychiatry
DX: T43.212A Poisoning by selective serotonin and norepinephrine reuptake inhibitors, intentional self-harm, initial encounter (principal); F31.4 Bipolar disorder, current episode depressed, severe, without psychotic features; Z68.42 Body mass index [BMI] 45.0-49.9, adult; F41.9 Anxiety disorder, unspecified; E66.01 Morbid (severe) obesity due to excess calories; Z91.51 Personal history of suicidal behavior; J45.909 Unspecified asthma, uncomplicated
CPT/HCPCS: 36415; 71045; 80053; 80069; 80306; 80307; 81001; 83735; 85025; 93005; 94640; 96372; 96376; 97150; 97165; 99285; G0378; J1650; J2405; J7613; J7799